=== PATIENT | male | born 1980 | race Caucasian/White ===

== ENCOUNTER 2024-05-29 05:56 | Outpatient (CLI) | payer BC ==
[2024-05-29] MEDS ORDERED: LIDOcaine 1%/PF 5ML 10 MG/ML VIAL ONE (06:44)
[2024-05-29] MEDS ORDERED: iohexol 300 MG/1 ML 50ml polymer ONE (06:45)
[2024-05-29] MEDS ORDERED: LIDOcaine 1% 30ml preserv. free vial ONE (06:45)
[2024-05-29] MEDS ORDERED: GADOTERATE MEGLUMINE 7.5 MMOL/15 ML VIAL IV ONE (06:45)
== END 2024-05-29 23:59 | disposition home or self-care (01) ==
LOC: RAD 05:56
PROVIDERS: ATTEND Pediatrics Sports Medicine
DX: M25.852 Other specified joint disorders, left hip (principal); M25.552 Pain in left hip; M70.62 Trochanteric bursitis, left hip
CPT/HCPCS: 27093; 73722; 77002; A9575; J3490; Q9967; 73525